=== PATIENT | female | born 2000 ===

== ENCOUNTER 2021-10-08 11:16 | Emergency (ER) | payer SELFPAY ==
[~2021-10-08] VITALS: Ht 147.3 cm; Wt 47.6 kg
[2021-10-08 13:39] VITALS: BP 102/63
[2021-10-08] MEDS ORDERED: KETOROLAC TROMETH 60MG/2ML VIAL IM ONE (15:45)
== END 2021-10-08 15:57 | disposition left against medical advice (07) ==
LOC: ER 11:16
DX: S50.811A Abrasion of right forearm, initial encounter (principal); Z53.29 Procedure and treatment not carried out because of patient's decision for other reasons; V43.52XA Car driver injured in collision with other type car in traffic accident, initial encounter; Y93.89 Activity, other specified; Y92.89 Other specified places as the place of occurrence of the external cause; Y99.8 Other external cause status
CPT/HCPCS: 70450; 73090; J1885